=== PATIENT | male | born 1955 | race Hispanic/Latino ===

== ENCOUNTER 2022-04-09 09:41 | Day surgery (SDC) | payer OTHER ==
[2022-04-08 14:56] LABS: EOSINOPHILS % (AUTO) 1.4 % (0.0-8.0); HEMATOCRIT 43.4 % (42-54); LYMPHOCYTES % (AUTO) 24.9 % (21.0-51.0); MEAN CORPUSCULAR HEMOGLOBIN 28.8 pg (27.0-33.0); MEAN CORPUSCULAR HGB CONC 32.9 g/dL (32.0-36.0); MEAN CORPUSCULAR VOLUME 87.3 fL (79-99); MONOCYTES % (AUTO) 11.2 % (3.0-13.0); NEUTROPHILS % (AUTO) 61.3 % (40.0-77.0); PLATELET COUNT (AUTO) 195 K/uL (130-400); RED BLOOD CELL COUNT(AUTO) 4.97 MIL/uL (4.50-6.20); RED CELL DISTRIBUTION WIDTH 13.6 % (11.0-15.5); WHITE BLOOD COUNT (AUTO) 4.2 K/uL (4.8-10.8)
[2022-04-08 14:58] LABS: APPEARANCE,URINE Clear (CLEAR); BILIRUBIN,URINE Negative (NEGATIVE); COLOR,URINE Yellow (YELLOW); GLUCOSE, URINE (UA) Negative (NEGATIVE); KETONES,URINE Negative (NEGATIVE); LEUKOCYTE ESTERASE ,URINE Negative (NEGATIVE); NITRATE,URINE Negative (NEGATIVE); OCCULT BLOOD,URINE Negative (NEGATIVE); PROTEIN,URINE Negative (NEGATIVE); UROBILINOGEN,URINE 0.2 mg/dL (0.2-1.0)
[2022-04-08 15:04] LABS: POTASSIUM 4.5 mmol/L (3.5-5.1)
[2022-04-08 15:08] LABS: INR 1.05 (0.85-1.15); PROTHROMBIN TIME 11.4 SEC (9.6-11.6)
[2022-04-08 15:09] LABS: PARTIAL THROMBOPLASTIN TIME 27.6 SEC (26.3-35.5)
[2022-04-08 15:22] LABS: B-TYPE NATRIURETIC PEPTIDE 38 pg/mL (0-100)
[2022-04-08 16:14] VITALS: BP 115/72
[2022-04-09] VITALS (8 sets, daily range): BP systolic 94–129; BP diastolic 67–86
[~2022-04-09] VITALS: Ht 175.3 cm; Wt 71.2 kg
[~2022-04-09 09:41] MED LIST: 0.9%NACL 1000ML 1,000 ML IV SCH; LEVO25CA4 PO; PRAV40TA3 PO; VITAMIN B12 PO; VITAMIN D3 PO
[2022-04-09] MEDS ORDERED: IOHEXOL-350 50ML VIAL IV ONE (12:50)
[2022-04-09] MEDS ORDERED: NITROGLYCERIN 50MG VIAL ONE (12:50)
[2022-04-09] MEDS ORDERED: IOHEXOL 350 MG/ML 100ML INFUS..BTL IV ONE (12:50)
[2022-04-09] MEDS ORDERED: NICARDIPINE 25MG INJ IV ONE (12:50)
[2022-04-09] MEDS ORDERED: SODIUM BICARB 50MEQ 50ML VIAL 50 ML ONE (12:50)
[2022-04-09] MEDS ORDERED: LIDOCAINE HCL 1% 10 ML VIAL ONE (12:51)
[2022-04-09] MEDS ORDERED: MIDAZOLAM HCL 1 MG/ML 2ML VIAL ONE (12:51)
[2022-04-09] MEDS ORDERED: FENTANYL CITRATE PF 50 MCG/1 ML 2ML VIAL ONE (12:51)
== END 2022-04-09 17:30 | disposition home or self-care (01) ==
LOC: DAH 09:41
PROVIDERS: ATTEND Internal Medicine Cardiovascular Disease
DX: I35.0 Nonrheumatic aortic (valve) stenosis (principal); I71.2 Thoracic aortic aneurysm, without rupture; I20.8 Other forms of angina pectoris; R55 Syncope and collapse; E78.5 Hyperlipidemia, unspecified; Z79.01 Long term (current) use of anticoagulants; Z79.899 Other long term (current) drug therapy; Z98.890 Other specified postprocedural states; Z83.3 Family history of diabetes mellitus; Z80.8 Family history of malignant neoplasm of other organs or systems; Z82.0 Family history of epilepsy and other diseases of the nervous system; Z72.89 Other problems related to lifestyle
CPT/HCPCS: 36415; 71045; 80048; 81003; 83880; 85025; 85610; 85730; 93005; 93454; 93567; C1769; C1894; J1644; J2250; J3010; J3490 ×4; J7030; Q9965; Q9967 ×2; 99156; 99157